=== PATIENT | male | born 1985 | race Caucasian/White ===

== ENCOUNTER 2022-05-12 08:01 | Emergency (ER) | payer OTHER ==
[~2022-05-12] VITALS: Ht 193 cm; Wt 109.0 kg
[2022-05-12 11:31] VITALS: BP 125/64
== END 2022-05-12 12:20 | disposition home or self-care (01) ==
LOC: ER 08:02
DX: J10.1 Influenza due to other identified influenza virus with other respiratory manifestations (principal); R07.1 Chest pain on breathing; R05.9 Cough, unspecified
CPT/HCPCS: 87502; 87503; 93005; 99284

== ENCOUNTER 2023-01-27 07:22 | Emergency (ER) | payer MEDICAID, OTHER ==
[~2023-01-27] VITALS: Ht 193 cm; Wt 109.1 kg
[2023-01-27] MEDS ORDERED: acetaminophen 325mg tablet PO ONE (07:40)
--- NOTE | 2023-01-27 07:51 | NUR ---
Pt swabbed and medicated for fever. Pt placed wearing N-95 mask and agrees to wear while awaiting room.
--- NOTE | 2023-01-27 07:52 | NUR ---
Reported pt status to ER MD Eula Xie and charge coordinator Lamar. Received VO per Dr. Xie that pt to be swabbed for influenza A&B.
[2023-01-27] MEDS ORDERED: proCHLORperazine 10 MG/2 ml inj IV ONE (09:05)
[2023-01-27] MEDS ORDERED: normal saline 1000ml 1,000 ML IV ONE ×2 (09:05)
--- NOTE | 2023-01-27 09:24 | NUR ---
EKG BEING PERFORMED AT THIS TIME.
--- NOTE | 2023-01-27 10:20 | NUR ---
RN ATTEMPTING TO GET IV AT THIS TIME AND WILL COLLECT 2ND SET OF CULTURES ONCE OBTAINED.
[2023-01-27 10:35] LABS: BASOPHILS % (AUTO) 0.6 % (0-1); EOSINOPHILS % (AUTO) 0.5 % (0-6); HEMATOCRIT 47.6 % (42.0-52.0); HEMOGLOBIN 16.2 g/dl (14.0-17.9); LYMPHOCYTES # (AUTO) 1.5 X10'3 (1.1-4.8); LYMPHOCYTES % (AUTO) 21.2 % (21-51); MEAN CORPUSCULAR HEMOGLOBIN 28.4 PG (27.0-31.0); MEAN CORPUSCULAR VOLUME 83.6 FL (78-98); MONOCYTES # (AUTO) 0.6 X10'3 (0-0.9); MONOCYTES % (AUTO) 8.5 % (2-12); NEUTROPHILS # (AUTO) 4.9 X10'3 (1.8-7.7); NEUTROPHILS % (AUTO) 69.2 % (42-75); PLATELET COUNT 219 X10'3 (140-440); RED BLOOD COUNT 5.69 X10'6 (4.70-6.10); RED CELL DISTRIBUTION WIDTH 13.3 % (11.5-14.5); WHITE BLOOD COUNT 7.1 X10'3 (4.5-11.0)
[2023-01-27 10:53] LABS: ALANINE AMINOTRANSFERASE 9 U/L (12-78); ALBUMIN 4.1 G/DL (3.4-5.0); ALKALINE PHOSPHATASE 66 IU/L (46-116); ANION GAP 7 (8-16); ASPARTATE AMINO TRANSFERASE 14 U/L (10-37); BILIRUBIN,TOTAL 0.7 MG/DL (0.1-1.0); BLOOD UREA NITROGEN 12 MG/DL (7-18); CALCIUM 9.3 MG/DL (8.5-10.1); CHLORIDE 101 MMOL/L (99-107); CREATINE KINASE 70 U/L (39-308); GLUCOSE 116 MG/DL (70-104); MAGNESIUM 2.3 MG/DL (1.5-2.4); POTASSIUM 4.1 MMOL/L (3.5-5.1); SODIUM 136 MMOL/L (135-145); TOTAL CARBON DIOXIDE 28.4 MMOL/L (24-32); TOTAL PROTEIN 8.1 G/DL (6.4-8.2); eCRCL 127 ML/MIN; eGFR 85 ML/MIN
--- NOTE | 2023-01-27 11:20 | NUR ---
2ND RN TRYING FOR IV NOW. IF UNSUCCESSFUL RN WILL ATTEMPT IV WITH US.
[2023-01-27 11:36] LABS: BILIRUBIN,URINE NEGATIVE (Neg); COLOR,URINE YELLOW (Yellow); GLUCOSE, URINE NEGATIVE (Neg); KETONES,URINE NEGATIVE (Neg); LEUKOCYTE ESTERASE ,URINE NEGATIVE (Neg); NITRITES, URINE NEGATIVE (Neg); OCCULT BLOOD,URINE NEGATIVE (Neg); PROTEIN,URINE NEGATIVE (Neg); UROBILINOGEN,URINE 0.2 E.U/dL (0.2-1.0)
[2023-01-27 11:39] LABS: CLARITY,URINE CLEAR (Clear); UA COLLECTION TYPE CLN CATCH MIDSTREAM
[2023-01-27 12:57] VITALS: BP 107/65; PULSE 67; RESP 15; TEMP 98.6; O2SAT 97
--- NOTE | 2023-01-27 13:03 | NUR ---
PER DR FONSECA NO NEED TO START A NEW IV FOR 2ND BOLUS D/T PT WILL DISCHARGED. IV DISCONTINUED WITH TIP INTACT. SWELLING NOTED. ICE PACK PROVIDED.
[2023-01-27] MEDS ORDERED: PRED50TA PO (13:11)
[2023-01-27] MEDS ORDERED: AMOX-117 PO (13:11)
--- NOTE | 2023-01-27 13:41 | NUR ---
NO INSTRUCTIONS PROVIDED IN DC PAPERWORK. ALSO, PT INQ IF HE WILL GET ANTIBIOTIC RX. RN WILL LOCATE DR FONSECA AND INQ IF HE WILL COMPLETE PAPERWORK/GIVE RX.
== END 2023-01-27 13:59 | disposition home or self-care (01) ==
LOC: ER 07:22
DX: G43.909 Migraine, unspecified, not intractable, without status migrainosus (principal); Z20.822 Contact with and (suspected) exposure to COVID-19; J01.90 Acute sinusitis, unspecified; R50.9 Fever, unspecified; F17.200 Nicotine dependence, unspecified, uncomplicated; Z88.6 Allergy status to analgesic agent; Z79.899 Other long term (current) drug therapy
CPT/HCPCS: 36415; 70450; 71045; 80053; 81003; 82550; 83605; 83735; 84145; 85025; 87040; 87502; 87503; 87811; 93005; 96361; 96374; 99285; J0780; J7030